=== PATIENT | male | born 1985 | race Caucasian/White ===

== ENCOUNTER 2018-09-23 21:41 | Emergency (ER) | payer SELFPAY ==
[2018-09-23] MEDS ORDERED: KETOROLAC TROMETHAMINE 30 MG/1 ML VIAL IM ONE (21:51)
--- NOTE | 2018-09-23 21:51 | PDOC ---
Rapid Medical Evaluation Time Seen by Provider: 09/23/18 21:42 Medical Evaluation: 09/23/18 21:42 I have performed a brief in-person evaluation of this patient. The patient presents with a chief complaint of: right upper back pain Pertinent physical exam findings: palpable right parascapular muscle spasms. No bony tenderness, deformity, stepoffs. I have ordered the following: toradol The patient will proceed to the ED for further evaluation. Discharge Disposition - Diagnosis Muscle spasm - Referrals - Patient Instructions - Post Discharge Activity
[2018-09-23 21:53] VITALS: BP 137/90; PULSE 86; TEMP 98; BMI 30.2
[2018-09-24] MEDS ORDERED: KETOROLAC TROMETHAMINE 30 MG/1 ML VIAL ONE (00:22)
[2018-09-24] MEDS ORDERED: LIDOCAINE 5% TOPICAL PATCH TP ONE (00:24)
[2018-09-24] MEDS ORDERED: CYCLOBENZAPRINE HCL 10 MG TABLET (FP) PO ONE (00:24)
[2018-09-24] MEDS ORDERED: ACETAMINOPHEN 500 MG TABLET (FP) PO ONE (00:24)
[2018-09-24] MEDS ORDERED: ACETAMINOPHEN 325 MG TABLET (FP) ONE (00:39)
[2018-09-24] MEDS ORDERED: CYCLOBENZAPRINE HCL 10 MG TABLET (FP) ONE (00:40)
[2018-09-24] MEDS ORDERED: LIDOCAINE 5% TOPICAL PATCH ONE (00:40)
--- NOTE | 2018-09-24 00:48 | PDOC ---
History of Present Illness - General Chief Complaint: Pain, Acute Stated Complaint: BACK PAIN/neck Time Seen by Provider: 09/23/18 21:42 History Source: Patient Exam Limitations: No Limitations - History of Present Illness Initial Comments: 09/24/18 00:43 Patient is a 33M with no significant medical history coming in today complaining of back pain radiating to his shoulder that started two days ago. 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 Patient has had issues with neck and upper back pain in the past. Denies fevers, chills, nausea, vomiting, chest pain, shortness of breath. Denies IVDA, urinary retention/incontinence, saddle anesthesia. Past History - Past Medical History Allergies/Adverse Reactions: Allergies Allergy/AdvReac Type Severity Reaction Status Date / Time No Known Allergies Allergy Verified 09/23/18 21:53 Home Medications: Ambulatory Orders Cyclobenzaprine HCl [Flexeril -] 10 mg PO TID #21 tablet 09/24/18 Lidocaine 5% Patch [Lidoderm -] 1 patch TP DAILY #7 patch 09/24/18 COPD: No - Suicide/Smoking/Psychosocial Hx Smoking History: Never smoked Have you smoked in the past 12 months: No Information on smoking cessation initiated: No Hx Alcohol Use: No Drug/Substance Use Hx: No Review of Systems - Review of Systems Comments:: 09/24/18 00:48 GENERAL/CONSTITUTIONAL: No fever or chills. No weakness. CARDIOVASCULAR: No chest pain or shortness of breath RESPIRATORY: No cough, wheezing, or hemoptysis. GASTROINTESTINAL: No nausea, vomiting, diarrhea or constipation. GENITOURINARY: No dysuria, frequency, or change in urination. MUSCULOSKELETAL: No joint or muscle swelling or pain. No neck pain +back pain. SKIN: No rash NEUROLOGIC: No headache, vertigo, loss of consciousness, or change in strength/ sensation. ALLERGIC/IMMUNOLOGIC: No hives or skin allergy. *Physical Exam - Vital Signs Last Vital Signs Temp Pulse Resp BP Pulse Ox 98.0 F 86 16 137/90 97 09/23/18 21:51 09/23/18 21:51 09/23/18 21:51 09/23/18 21:51 09/23/18 21:51 - Physical Exam Comments: 09/24/18 00:48 GENERAL: Awake, alert, and fully oriented, in no acute distress BACK: No midline tenderness, muscle tightness appreciated along right trapezius , no signs of trauma HEAD: No signs of trauma, normocephalic, atraumatic EYES: PERRLA, EOMI, sclera anicteric, conjunctiva clear ENT: Auricles normal inspection, hearing grossly normal, nares patent, oropharynx clear without exudates. Moist mucosa NECK: Normal ROM, no midline tenderness LUNGS: No distress, speaks full sentences, clear to auscultation bilaterally HEART: Regular rate and rhythm, normal S1 and S2, no murmurs, rubs or gallops, peripheral pulses normal and equal bilaterally. NEUROLOGICAL: Cranial nerves II through XII grossly intact. Normal speech, normal gait, no focal sensorimotor deficits SKIN: Warm, Dry, normal turgor, no rashes or lesions noted. Moderate Sedation - Procedure Monitoring Vital Signs: Procedure Monitoring Vital Signs Temperature 98.0 F 09/23/18 21:51 Pulse Rate 86 09/23/18 21:51 Respiratory Rate 16 09/23/18 21:51 Blood Pressure 137/90 09/23/18 21:51 O2 Sat by Pulse Oximetry (%) 97 09/23/18 21:51 ED Treatment Course - Medications Given in the ED: ED Medications Discontinued Medications Generic Name Dose Route Start Last Admin Trade Name Shmuel PRN Reason Stop Dose Admin Ketorolac Tromethamine 30 mg 09/23/18 21:51 09/24/18 00:29 Toradol Injection - IM 09/23/18 21:52 30 mg ONCE ONE Administration Medical Decision Making - Medical Decision Making 09/24/18 00:49 Patient is 33M here today with back pain. Vitals normal and stable. No red flags on history or exam. Will discharge home with pain control. Given return precautions and instructions to follow up with primary care doctor. *DC/Admit/Observation/Transfer Diagnosis at time of Disposition: Muscle spasm, Back pain - Discharge Dispostion Disposition: HOME Condition at time of disposition: Good Decision to Admit order: No - Prescriptions Prescriptions: Cyclobenzaprine HCl [Flexeril -] 10 mg PO TID #21 tablet Lidocaine 5% Patch [Lidoderm -] 1 patch TP DAILY #7 patch - Referrals Referrals: [facility] [place] [facility] [place] [Provider Group] - Patient Instructions Printed Discharge Instructions: DI for Thoracic Back Pain Additional Instructions: Please follow up with a primary care doctor, a number has been provided in your paperwork. Please return if you have any new, worsening or concerning symptoms, especially fever, increasing pain and shortness of breath. - Post Discharge Activity Forms/Work/School Notes: Back to Work
--- NOTE | 2018-09-24 00:51 | PDOC ---
Attending Attestation - Resident Resident Name: Roque Seals - ED Attending Attestation I have performed the following: I have examined & evaluated the patient, The case was reviewed & discussed with the resident, I agree w/resident's findings & plan, Exceptions are as noted - HPI HPI: 09/24/18 05:36 33M no pmh here with 2 days of back px that radiates to his shoulders. Denies any trauma. 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 No other complaints. - Physicial Exam PE: 09/24/18 05:38 Agree with exam as documented by resident - Medical Decision Making 09/24/18 05:38 Analgesia, re-eval imaging not indicated likely msk px
[2018-09-24] MEDS ORDERED: LIDOCAINE PATCH REMOVAL MC SCH (22:00)
== END 2018-09-24 01:04 | disposition home or self-care (01) ==
LOC: JER 21:41 → JERFT 21:41 → JER 09-24 01:04
PROC: 3E0233Z Introduction of Anti-inflammatory into Muscle, Percutaneous Approach (ICD-10-PCS; principal; 2018-09-23)
DX: M62.830 Muscle spasm of back (principal)
CPT/HCPCS: 99281-25; 99282-25

== ENCOUNTER 2020-09-03 22:24 | Emergency (ER) | payer OTHER ==
[2020-09-03 22:31] VITALS: BP 114/80; PULSE 116; TEMP 98.1; BMI 29.5
[2020-09-03] MEDS ORDERED: LACTATED RINGERS SOLUTION 1000 ML INFUS.BAG IV ONE (23:33)
[2020-09-03 23:52] LABS: BASO % 0.6 % (0-2.0); EOS % 0.4 % (0-4.5); HEMATOCRIT 48.4 % (35.4-49); HEMOGLOBIN 16.5 GM/dL (11.7-16.9); LYMPH % 21.6 % (8-40); MCH 29.9 pg (25.7-33.7); MCHC 34.2 g/dl (32.0-35.9); MEAN CELL VOLUME 87.6 fl (80-96); MEAN PLT VOLUME 8.5 fl (7.5-11.1); MONO % 10.6 % (3.8-10.2); NEUT % 66.8 % (42.8-82.8); PLATELET COUNT 384 K/MM3 (134-434); RBC 5.52 M/mm3 (4.00-5.60); RDW 13.9 % (11.9-15.9); WHITE BLOOD COUNT 7.4 K/mm3 (4.0-10.0)
[2020-09-04 00:08] LABS: CHLORIDE 97 mmol/L (98-107); SODIUM 123 mmol/L (136-145)
[2020-09-04 00:10] LABS: CALCIUM 9.8 mg/dL (8.5-10.1)
[2020-09-04 00:11] LABS: ALBUMIN 4.6 g/dl (3.4-5.0); BLOOD UREA NITROGEN 11.3 mg/dL (7-18); CO2 28 mmol/L (21-32); GLUCOSE,RANDOM 78 mg/dL (74-106)
[2020-09-04 00:14] LABS: CREATININE 1.1 mg/dL (0.55-1.3)
[2020-09-04 00:16] LABS: TOT PROT 10.2 g/dl (6.4-8.2)
[2020-09-04 00:17] LABS: ALK PHOS 66 U/L (45-117)
[2020-09-04] MEDS ORDERED: ASPIRIN 81 MG CHEWABLE TABLETS PO ONE (00:17)
[2020-09-04 00:28] LABS: ANION GAP -2 MMOL/L (8-16)
[2020-09-04 00:32] LABS: POTASSIUM > 10.0 mmol/L (3.5-5.1)
== END 2020-09-04 00:58 | disposition left against medical advice (07) ==
LOC: JER 22:24
DX: R07.1 Chest pain on breathing (principal); R07.81 Pleurodynia
CPT/HCPCS: 36415; 80053; 82550; 82553; 84484; 85025; 93005; 93010; 99285-25